=== PATIENT | female | born 1955 | race Caucasian/White ===

== ENCOUNTER → 2017-05-05 | Outpatient (CLI) | payer BC ==
--- NOTE | 2017-05-06 10:00 | WWHP ---
[facility] - HISTORY AND PHYSICAL DATE OF SERVICE: 05/05/2017 CHIEF COMPLAINT: The patient is here for her routine gynecologic exam and mammogram. HPI: This is a 62-year-old G3, P1-0-2-1 with an LMP of 2006. The patient denies any postmenopausal bleeding and is without gynecologic complaints. She does have a history of abnormal Pap smears in recent years. Starting in 2012, she had a low-grade EDMOND Pap smear with positive high-risk HPV testing. She was sent to Dr. Mehta at the [facility]. She has had multiple colposcopies. Colposcopies have been limited because of cervical stenosis and atrophy. Pap smears on 12/19/2014 and 03/25/2016 showed ASCUS with positive high-risk HPV testing. She had talked to Dr. Mehta about possible hysterectomy, but this was not done. She states she has not been sexually active for more than 2 years. PAST MEDICAL HISTORY: Type 2 diabetes, elevated cholesterol, ADHD, and arthritis of the knees. MEDICATIONS: 1. Januvia 100 mg daily. 2. Lipitor 20 mg daily. 3. Vagifem 10 mcg intravaginally twice weekly. 4. Vitamin D3, 1000 units daily. 5. Voltaren gel 1% p.r.n. applied to the knees. 6. Advil 2 b.i.d. p.r.n. 7. Synvisc knee injections every 6 months. ALLERGIES: LEVAQUIN, CONTRAVE, and X-RAY DYE. PAST SURGICAL HISTORY: Past surgical history is unchanged from the 03/25/2016 H&P. 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 She had cryotherapy of the cervix and cold knife conization of the cervix in the for abnormal Pap smears. She has been diagnosed with HPV, but has no other history of STDs in the past. SOCIAL HISTORY: She denies tobacco and drug use and has 0 to 1 alcohol-containing drink per month. She has been since 1997 and has not been sexually active since 2016. 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 FAMILY HISTORY: Grandfather had bowel cancer. Maternal grandfather had lung and brain cancer. Father had coronary artery disease. REVIEW OF SYSTEMS: She has gained about 8 pounds over the last year. She denies respiratory, cardiac or GI problems. PHYSICAL EXAM: Blood pressure 125/60, height 4 feet 11 inches, weight 184 pounds, BMI 37, temperature 97.3, pulse 74. This is a well-developed, well-nourished, white female, who is alert and oriented x3, in no acute distress. HEENT is within normal limits. NECK: Supple without mass or thyromegaly. CHEST AND LUNGS: Clear to auscultation. HEART: Regular rate and rhythm. Breasts are without mass or discharge. Axillary exam is negative for adenopathy. BACK: Negative for CVA tenderness. ABDOMEN: Soft, nontender, without palpable masses. PELVIC EXAM: External genitalia reveals [id number] atrophy without lesions. Cervix and vagina reveals moderate atrophy with stenotic appearing atrophic cervix without lesions. The cervix is nearly flush with the back of the vagina secondary to atrophy. There is no evidence of prolapse. There is no unusual discharge. The uterus is mid position, nongravid size and nontender. There are no palpable adnexal masses or tenderness. Rectovaginal exam is negative for mass or tenderness and is negative for occult blood. EXTREMITIES: Nontender. IMPRESSION: 1. A 62-year-old menopausal female with moderate genital atrophy and resulting cervical stenosis in otherwise unremarkable gynecologic exam. 2. History of ASCUS Pap smears with positive high-risk HPV testing in 2014 and 2016. PLAN: 1. Pap smear was performed. This will be done with high-risk HPV testing today. 2. Self breast examination was discussed. 3. Mammogram will be done today. 4. Continue Vagifem 10 mcg twice weekly at this time. 5. Osteoporosis prevention was discussed. I have recommended bone density screening. An order slip was given to the patient for this. 6. I have recommended screening colonoscopy since it has been more than 10 years since her last one and Dr. Martin's card was given to the patient for this. 7. If Pap smear testing it is negative and HPV testing is negative, we will proceed with conservative management. If HPV testing or Pap smear is positive, consider referral back to Dr. Mehta for recommendations. 8. She will return in one year. MMODL / IJN: [id number] /
--- NOTE | 2017-05-06 10:00 | MM ---
Reason for exam: screening (asymptomatic). Last mammogram was performed 1 year and 1 month ago. History: Patient is postmenopausal. Taking other hormone for 2 years. Physical Findings: A clinical breast exam by your physician is recommended on an annual basis and results should be correlated with mammographic findings. MG Screening Mammo w CAD Bilateral CC and MLO view(s) were taken. Prior study comparison: March 25, 2016, bilateral MG 3d screening mammo w/cad. May 12, 2014, bilateral MG screening mammo w CAD. There are scattered fibroglandular densities. There is no discrete abnormality. No significant changes when compared with prior studies. ASSESSMENT: Negative, BI-RAD 1 RECOMMENDATION: Routine screening mammogram of both breasts in 1 year.
== END | disposition home or self-care (01) ==
LOC: WWCWWP 14:16
PROVIDERS: ATTEND Obstetrics & Gynecology
DX: Z12.31 Encounter for screening mammogram for malignant neoplasm of breast (principal)
CPT/HCPCS: 77067

== ENCOUNTER → 2017-06-01 | Outpatient (CLI) | payer BC ==
--- NOTE | 2017-06-02 07:39 | BD ---
EXAMINATION TYPE: MG DEXA axial skeleton. DATE OF EXAM: 06/01/2017 COMPARISON: NONE CLINICAL HISTORY: PT IS 62 YR OLD FEMALE: ICD-10 CODE: Z78.0 POST MENOPAUSAL STATUS Height: 57.7 Weight: 180 FRAX RISK QUESTIONS: Alcohol (3 or more units per day): NO Family History (Parent hip fracture): NO Glucocorticoids (More than 3mos): NO (Ex: prednisone, prednisolone, methylprednisolone, dexamethasone, and hydrocortisone). History of Fracture in Adulthood: NO Secondary Osteoporosis: NO 1. Type 1 Diabetes: NO 2. Hyperthyroidism: NO 3. Menopause before 45: NO 4. Malnutrition: NO 5. Chronic liver disease: NO Rheumatoid Arthritis: NO Current Tobacco Use: NO RISK FACTORS HISTORY OF: Family History of Osteoporosis: NO Active: SOMEWHAT, KNEES PAINFUL Diet low in dairy products/other sources of calcium: NO Postmenopausal woman: YES AT AGE 51 Take estrogen and/or progesterone medications: VAGIFEM, How lon-4 YRS Lost more than 2 inches in height since high school: YES Hyperparathyroidism: NO Adrenal Insufficiency: NO MEDICATIONS: Additional Medications: TYPE 2 DIABETIC, VICTOZA, JENUVIA, LIPITOR, VIT D3, ALEVE Additional History: DIABETIC, SEVERE OSTEOARTHIS IN BOTH KNEES EXAM MEASUREMENTS: Bone mineral densitometry was performed using the [employer] System. Bone mineral density as measured about the Lumbar spine is: ----- L1-L4(G/cm2): 1.199 T Score Values are as follows: ----- L1: 0.2 ----- L2: -0.3 ----- L3: -0.3 ----- L4: 0.8 ----- L1-L4: 0.2 Bone mineral density FIRST BONE DENSITY TEST..........BASELINE STUDY Bone mineral density about the R hip (g/cm2): 1.107 Bone mineral density about the L hip (g/cm2): 1.067 T Score values are as follows: -----R Neck: -0.6 -----L Neck: -0.4 -----R Total: 0.8 -----L Total: 0.5 Bone mineral density BASELINE STUDY FRAX%S: THERE IS A 6.4% CHANCE OF A MAJOR OSTEOPOROTIC FX AND A 0.3% FOR HIP FX....PROBABILITY OF F X IN 10 YRS TIME IMPRESSION: No evidence for osteoporosis or osteopenia. NOTE: T-SCORE=SD OF THE YOUNG ADULT MEAN.
== END ==
LOC: RADBDWWP 15:03
PROVIDERS: ATTEND Obstetrics & Gynecology
DX: Z78.0 Asymptomatic menopausal state (principal)
CPT/HCPCS: 77080

== ENCOUNTER → 2018-09-07 | Outpatient (CLI) | payer BC ==
[2018-09-07 11:57] VITALS: BP 116/76; PULSE 52; RESP 18; TEMP 97.9; BMI 31.6
--- NOTE | 2018-09-07 12:27 | P.HPOB ---
History of Present Illness H&P Date: 09/07/18 Chief Complaint: The patient is here for her routine gynecologic exam and ma mmogram. This is a 63-year-old with an LMP of 2006. The patient is without gynecologic complaints and denies any postmenopausal bleeding. The patient has a history of several abnormal Pap smear is showing ascus or low-grade changes with positive high risk HPV testing since 2012. Her most recent Pap smear on 05/05/2017 showed ascus with positive high-risk HPV. The patient had a colposc opic examination by Dr. Myers (U or M)09/25/2017 which showed findings consistent with ULISES 1 and cervical stenosis. He planned repeating the Pap smear with high-risk HPV testing in one year. Review of Systems The patient has lost 11 pounds over the last year. She denies respiratory, cardiac, or G.I. problems. Past Medical History Past Medical History: Diabetes Mellitus, Hyperlipidemia, Osteoarthritis (OA) Additional Past Medical History / Comment(s): Type II diabetes, ADHD and arthritis of the knees. 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 History of high risk HPV. No other history of STDs. History of Any Multi-Drug Resistant Organisms: None Reported Past Psychological History: ADD/ADHD Smoking Status: Never smoker Past Alcohol Use History: Rare (0-1 per month) Additional History: The patient is . She has not been sexually active since 2015. 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 Medications and Allergies Home Medications Medication Instructions Recorded Confirmed Type Cholecalciferol (Vitamin D3) 2,000 unit PO DAILY 09/07/18 09/07/18 History [Vitamin D3] Estradiol [Vagifem] 10 mcg VG DIRECTED 09/07/18 09/07/18 History sitaGLIPtin [Januvia] 100 mg PO DAILY 09/07/18 09/07/18 History Allergies Allergy/AdvReac Type Severity Reaction Status Date / Time levofloxacin [From Levaquin] AdvReac Severe HIVES Unverified 09/07/18 11:50 metformin AdvReac Severe HIVES,NAUSE Unverified 09/07/18 11:50 A Exam Vital Signs Temp Pulse Resp BP Pulse Ox 09/07/18 11:53 97.9 F 52 L 18 116/76 100 Intake and Output 0509/07/18 09/07/18 22:59 06:59 14:59 Other: Weight 78.471 kg Height 4'11", weight 173 pounds, BMI 31.6. This is a well-developed well-nourished white female who is alert and oriented times 3 in no acute distress. HEENT: Within normal limits. NECK: Supple without mass or thyromegaly. CHEST AND LUNGS: Clear to auscultation. HEART: Regular rate and rhythm. BREASTS: Are without mass or discharge. AXILLARY EXAM: Negative for adenopathy. BACK: Negative for CVA tenderness. ABDOMEN: Soft, nontender, without palpable masses. PELVIC EXAM: Normal external genitalia with mild atrophy. Cervix and vagina appear normal with mild to moderate atrophy. The cervix is stenotic. There is no unusual discharge. There is no evidence of prolapse. The uterus is midposition, nongravid size and nontender. There are no palpable adnexal masses or tenderness. RECTAL EXAM: rectovaginal exam is negative for mass or tenderness and is negative for occult blood. EXTREMITIES: Nontender. IMPRESSION: 1. 63-year-old menopausal female with cervical stenosis consistent with atrophy and previous organization over cervix. Otherwise unremarkable gynecologic exam. 2. History of multiple low-grade ore ascus Pap smear is with positive high risk HPV testing since 2012. PLAN: 1. Pap smear with high-risk HPV testing (cotest) was performed. 2. Self breast awareness was discussed with the patient. 3. Screening mammogram will be done today. 4. Continue Vagifem 10 g twice weekly intravaginally. The patient requested a paper prescription for this. 5. Osteoporosis prevention was discussed. I have stressed the importance of adequate calcium, vitamin D and regular exercise. Recommended amounts of calcium and vitamin D were also discussed. She had a normal bone density test on 06/01/2017 and this will be repeated around 2024. 6.She was advised to return in one year for her annual well woman exam.
--- NOTE | 2018-09-08 08:53 | MM ---
Reason for exam: screening (asymptomatic). Last mammogram was performed 1 year and 4 months ago. History: Patient is postmenopausal. Taking other hormone for 2 years. Physical Findings: A clinical breast exam by your physician is recommended on an annual basis and results should be correlated with mammographic findings. MG 3D Screening Mammo W/Cad Bilateral CC and MLO view(s) were taken. Prior study comparison: May 05, 2017, bilateral MG screening mammo w CAD. March 25, 2016, bilateral MG 3d screening mammo w/cad. The breast tissue is heterogeneously dense. This may lower the sensitivity of mammography. No suspicious abnormality. No significant changes when compared with prior studies. ASSESSMENT: Negative, BI-RAD 1 RECOMMENDATION: Routine screening mammogram of both breasts in 1 year.
== END ==
LOC: WWCWWP 11:16
PROVIDERS: ATTEND Obstetrics & Gynecology
DX: Z12.31 Encounter for screening mammogram for malignant neoplasm of breast (principal)
CPT/HCPCS: 77063; 77067

== ENCOUNTER → 2019-10-18 | Outpatient (CLI) | payer BC ==
[2019-10-18 15:13] VITALS: BP 102/68; PULSE 87; RESP 20; TEMP 98.2
--- NOTE | 2019-10-18 16:06 | P.HPOB ---
History of Present Illness H&P Date: 10/18/19 Chief Complaint: The patient is here for her routine gynecologic exam and ma mmogram. This is a 64-year-old with an LMP of 2005. The patient is without gynecologic complaints and denies any post menopausal bleeding. Review of Systems The patient has gained 5 pounds over the last year. She denies respiratory, cardiac, or G.I. problems. Past Medical History Past Medical History: Diabetes Mellitus, Hyperlipidemia, Osteoarthritis (OA) Additional Past Medical History / Comment(s): Type II diabetes, ADHD and arthritis of the knees. 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 History of high risk HPV. No other history of STDs. History of Any Multi-Drug Resistant Organisms: None Reported Past Surgical History: Cholecystectomy, Tonsillectomy Additional Past Surgical History / Comment(s): Ovarian cystectomy, bilateral salpingectomy for ectopic , D&C, multiple laparoscopies for infertility, cold knife conization of the cervix and cryotherapy of the cervix in the , Lasix eye surgery. Colonoscopy 2000. Past Psychological History: ADD/ADHD Smoking Status: Never smoker Past Alcohol Use History: Rare (0-1 per month) Past Drug Use History: None Reported Additional History: She is . She has not been sexually active since 2015. 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 - Past Family History Father Family Medical History: Coronary Artery Disease (CAD) Paternal Grandfater Family Medical History: Cancer Additional Family Medical History / Comment(s): Bowel cancer. Maternal grandfather Family Medical History: Cancer Additional Family Medical History / Comment(s): Lung and brain cancer. Maternal Aunt Family Medical History: Cancer Additional Family Medical History / Comment(s): Some type of gynecologic cancer. Medications and Allergies Home Medications Medication Instructions Recorded Confirmed Type Cholecalciferol (Vitamin D3) 2,000 unit PO DAILY 09/07/18 10/18/19 History [Vitamin D3] Estradiol [Vagifem] 10 mcg VG DIRECTED 09/07/18 10/18/19 History sitaGLIPtin [Januvia] 100 mg PO DAILY 09/07/18 10/18/19 History Atorvastatin [Lipitor] 20 mg PO HS 10/18/19 10/18/19 History Diclofenac Sodium [Voltaren] 25 mg PO DAILY PRN 10/18/19 10/18/19 History Ertugliflozin Pidolate [Steglatro] 5 mg PO DAILY 10/18/19 10/18/19 History Naproxen Sodium [Aleve] 220 mg PO DAILY 10/18/19 10/18/19 History Allergies Allergy/AdvReac Type Severity Reaction Status Date / Time levofloxacin [From Levaquin] AdvReac Severe HIVES Unverified 10/18/19 15:04 metformin AdvReac Severe HIVES,NAUSE Unverified 10/18/19 15:04 A CONTRAST DYE AdvReac Rash/Hives Uncoded 10/18/19 15:07 Exam Vital Signs Temp Pulse Resp BP Pulse Ox 10/18/19 15:08 98.2 F 87 20 102/68 94 L Intake and Output 10/18/19 10/18/19 10/18/19 06:59 14:59 22:59 Other: Weight 80.739 kg Height 4 feet 10 inches, weight 178 pounds, BMI 37.2. This is a well-developed well-nourished white female who is alert and oriented times 3 in no acute distress. HEENT: Within normal limits. NECK: Supple without mass or thyromegaly. CHEST AND LUNGS: Clear to auscultation. HEART: Regular rate and rhythm. BREASTS: Are without mass or discharge. AXILLARY EXAM: Negative for adenopathy. BACK: Negative for CVA tenderness. ABDOMEN: Soft, nontender, without palpable masses. PELVIC EXAM: Normal external genitalia with mild to moderate atrophy. Cervix and vagina appear normal with mild to moderate atrophy. The cervix is somewhat flush with the back of the vagina and is atrophic. Cervix appears stenotic cons istent with her previous conization of the cervix. There is no unusual discharge. There is no evidence of prolapse. The uterus is midposition, nongravid size and nontender. There are no palpable adnexal masses or tenderness. RECTAL EXAM: Rectovaginal exam is negative for mass or tenderness and is negative for occult blood. EXTREMITIES: Nontender. IMPRESSION: 1. 64-year-old menopausal female with history of multiple cervical procedures including cold knife conization of the cervix and cryotherapy of the cervix. The cervix is somewhat shortened and stenotic and is otherwise unremarkable. Otherwise unremarkable gynecologic exam. 2. History of multiple low-grade changes of the cervix. Last Pap smear with high-risk HPV testing was negative on 09/07/2018. PLAN: 1. Pap smear was deferred since she had a negative co-test Pap smear on 09/07/2018. We will repeat Pap smear testing in 1-2 years. 2. Self breast awareness was discussed with the patient. 3. Screening mammogram will be done today. 4. Osteoporosis prevention was discussed. I have stressed the importance of adequate calcium, vitamin D and regular exercise. Recommended amounts of calcium and vitamin D were also discussed. She had a normal bone density test on 06/01/2017. We will plan on repeating bone density testing in approximately 6 years. 5. She states she had a cologuard colorectal screening in 2018 and was negative per the patient. She will discuss further colorectal screening with Dr. Todd. 6. She was advised to return in one year for her annual well woman exam.
--- NOTE | 2019-10-20 10:05 | MM ---
Reason for exam: screening (asymptomatic). Last mammogram was performed 1 year and 1 month ago. History: Patient is postmenopausal. Took hormonal contraceptives for 10 years. Taking other hormone for 2 years. Physical Findings: A clinical breast exam by your physician is recommended on an annual basis and results should be correlated with mammographic findings. MG 3D Screening Mammo W/Cad Bilateral CC and MLO view(s) were taken. Prior study comparison: September 07, 2018, bilateral MG 3d screening mammo w/cad. May 05, 2017, bilateral MG screening mammo w CAD. There are scattered fibroglandular densities. Stable faint 12 o'clock posterior calcifications on the right. No significant changes when compared with prior studies. ASSESSMENT: Negative, BI-RAD 1 RECOMMENDATION: Routine screening mammogram of both breasts in 1 year.
== END | disposition home or self-care (01) ==
LOC: WWCWWP 14:58
PROVIDERS: ATTEND Obstetrics & Gynecology
DX: Z12.31 Encounter for screening mammogram for malignant neoplasm of breast (principal)
CPT/HCPCS: 77063; 77067

== ENCOUNTER → 2020-11-06 | Outpatient (CLI) | payer MEDICARE ==
[2020-11-06 12:55] VITALS: BP 107/75; PULSE 83; RESP 18; TEMP 98.6
--- NOTE | 2020-11-06 13:32 | P.HPOB ---
History of Present Illness H&P Date: 11/06/20 Chief Complaint: The patient is here for her routine gynecologic exam and ma mmogram. This is a 65-year-old 0-1 with an LMP of 2006. The patient is without gynecologic complaints and denies any postmenopausal bleeding. The patient has a history of cervical dysplasia and had previous cervical procedures done including cold knife conization and cryotherapy of the cervix in the . She has had relatively frequent abnormal Pap smears with low-grade changes over the past 10 years. Her last Pap smear with high-risk HPV testing were both negative on 09/07/2018. She stopped using Vagifem for vaginal dryness and she has noticed more vaginal dryness and would like to restart it. Review of Systems She has gained about 6 pounds over the past year. She denies respiratory, cardiac and G.I. problems. She denies maltreatment or problems with falling. : she denies any significant problems with urinary leakage. Past Medical History Past Medical History: Diabetes Mellitus, Hyperlipidemia, Osteoarthritis (OA) Additional Past Medical History / Comment(s): Type II diabetes, ADHD and arthritis of the knees. 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 History of high risk HPV. No other history of STDs. History of Any Multi-Drug Resistant Organisms: None Reported Past Surgical History: Cholecystectomy, Tonsillectomy Additional Past Surgical History / Comment(s): Ovarian cystectomy, bilateral salpingectomy for ectopic , D&C, multiple laparoscopies for infertility, cold knife conization of the cervix and cryotherapy of the cervix in the , Lasix eye surgery. Colonoscopy 2000. Past Psychological History: ADD/ADHD Smoking Status: Never smoker Past Alcohol Use History: Rare (One per month) Past Drug Use History: None Reported Additional History: She is and has not been sexually active since 2016. 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 - Past Family History Father Family Medical History: Coronary Artery Disease (CAD) Paternal Grandfater Family Medical History: Cancer Additional Family Medical History / Comment(s): Bowel cancer. Maternal grandfather Family Medical History: Cancer Additional Family Medical History / Comment(s): Lung and brain cancer. Maternal Aunt Family Medical History: Cancer Additional Family Medical History / Comment(s): Some type of gynecologic cancer. Medications and Allergies Home Medications Medication Instructions Recorded Confirmed Type Cholecalciferol (Vitamin D3) 2,000 unit PO DAILY 09/07/18 11/06/20 History [Vitamin D3] sitaGLIPtin [Januvia] 100 mg PO DAILY 09/07/18 11/06/20 History Atorvastatin [Lipitor] 20 mg PO HS 10/18/19 11/06/20 History Diclofenac Sodium [Voltaren] 25 mg PO DAILY PRN 10/18/19 11/06/20 History Naproxen Sodium [Aleve] 220 mg PO DAILY 10/18/19 11/06/20 History Celecoxib [CeleBREX] 100 mg PO BID 11/06/20 11/06/20 History Allergies Allergy/AdvReac Type Severity Reaction Status Date / Time levofloxacin [From Levaquin] AdvReac Severe HIVES Unverified 11/06/20 12:44 metformin AdvReac Severe HIVES,NAUSE Unverified 11/06/20 12:44 A CONTRAST DYE AdvReac Rash/Hives Uncoded 11/06/20 12:44 Exam Vital Signs Temp Pulse Resp BP Pulse Ox 11/06/20 12:47 98.6 F 83 18 107/75 96 Intake and Output 11/05/20 11/06/20 11/06/20 22:59 06:59 14:59 Other: Weight 83.461 kg Height 4 feet 10 inches, weight 184 pounds, BMI 38.5. This is a well-developed well-nourished white female who is alert and oriented times 3 in no acute distress. HEENT: Within normal limits. NECK: Supple without mass or thyromegaly. CHEST AND LUNGS: Clear to auscultation. HEART: Regular rate and rhythm. BREASTS: Are without mass or discharge. AXILLARY EXAM: Negative for adenopathy. BACK: Negative for CVA tenderness. ABDOMEN: Soft, nontender, without palpable masses. PELVIC EXAM: Normal external genitalia with mild to moderate atrophy. Cervix and vagina appear normal with moderate atrophy. The cervix appears stenotic and very atrophic and is nearly flush with the back of the vagina consistent with her previous conization. There are no cervical lesions noted. There is no unusual discharge. There is no evidence of prolapse. The uterus is midposition, nongravid size and nontender. There are no palpable adnexal masses or tenderness. RECTAL EXAM: Rectovaginal exam is negative for mass or tenderness and is negative for occult blood. EXTREMITIES: Nontender. IMPRESSION: 1. 65-year-old menopausal female with normal gynecologic exam. 2. History of multiple cervical procedures including cold knife conization and cryotherapy of the cervix. PLAN: 1. Pap smear test was performed. This was done earlier than usual following a negative Pap smear cotest due to her history. We will continue cervical sc reening until we have had 3 negative ones in a row. 2. Self breast awareness was discussed with the patient. 3. Screening mammogram will be done today. 4. Osteoporosis prevention was discussed. I have stressed the importance of adequate calcium, vitamin D and regular exercise. Recommended amounts of calcium and vitamin D were also discussed. Next bone density test will be done in approximately 3-4 years. 5. She would like to resume using Vagifem for vaginal dryness. Vagifem 10 g into the vagina twice weekly. The prescription will be sent electronically to [facility] on [facility]. 6. She has completed her Covid vaccination series and did receive her flu shot last fall. 7. She was advised to return in one year for her annual well woman exam.
== END ==
LOC: WWCWWP 12:28
PROVIDERS: ATTEND Obstetrics & Gynecology
DX: Z12.31 Encounter for screening mammogram for malignant neoplasm of breast (principal); Z01.419 Encounter for gynecological examination (general) (routine) without abnormal findings; E11.9 Type 2 diabetes mellitus without complications; E78.5 Hyperlipidemia, unspecified; M17.0 Bilateral primary osteoarthritis of knee; F90.9 Attention-deficit hyperactivity disorder, unspecified type; Z98.890 Other specified postprocedural states; Z79.84 Long term (current) use of oral hypoglycemic drugs; Z88.8 Allergy status to other drugs, medicaments and biological substances; Z88.1 Allergy status to other antibiotic agents; Z91.041 Radiographic dye allergy status
CPT/HCPCS: 77063; 77067

== ENCOUNTER → 2020-11-21 | Outpatient (CLI) | payer MEDICARE ==
--- NOTE | 2020-11-22 11:36 | MM ---
Reason for exam: screening (asymptomatic). Last mammogram was performed less than 1 month ago. History: Patient is postmenopausal. Took hormonal contraceptives for 10 years. Taking other hormone for 2 years. Physical Findings: A clinical breast exam by your physician is recommended on an annual basis and results should be correlated with mammographic findings. MG Follow Up LT No Charge CC and MLO view(s) were taken of the left breast. Prior study comparison: October 18, 2019, bilateral MG 3d screening mammo w/cad. September 07, 2018, bilateral MG 3d screening mammo w/cad. There are scattered fibroglandular densities. There are stable grouped/clustered fine calcifications in the posterior position of the right breast. No significant changes in finding since October 18, 2019 and September 07, 2018. ASSESSMENT: Benign, BI-RAD 2 RECOMMENDATION: Routine screening mammogram of both breasts in 1 year.
== END | disposition home or self-care (01) ==
LOC: RADMAMWWP 13:44
PROVIDERS: ATTEND Obstetrics & Gynecology
DX: Z12.31 Encounter for screening mammogram for malignant neoplasm of breast (principal); Z78.0 Asymptomatic menopausal state; Z79.3 Long term (current) use of hormonal contraceptives

== ENCOUNTER → 2022-03-18 | Outpatient (CLI) | payer MEDICARE ==
[2022-03-18 14:35] VITALS: BP 116/65; PULSE 86; RESP 18; TEMP 98.3
--- NOTE | 2022-03-18 15:20 | P.HPOB ---
History of Present Illness H&P Date: 03/18/22 Chief Complaint: The patient is here for her routine gynecologic exam and ma mmogram. This is a 66-year-old with an LMP of 2005. The patient is without gynecologic complaints and denies any postmenopausal bleeding. She has not been using the Vagifem tablets since she did not feel there was enough benefit with taking it. She is not sexually active and has not been sexually active for a number of years. Review of Systems The patient's weight has been stable over the last year. She denies respiratory, cardiac, or G.I. problems. Past Medical History Past Medical History: Diabetes Mellitus, Hyperlipidemia, Osteoarthritis (OA) Additional Past Medical History / Comment(s): Type II diabetes, ADHD and arthritis of the knees. 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 History of high risk HPV. No other history of STDs. History of Any Multi-Drug Resistant Organisms: None Reported Past Surgical History: Cholecystectomy, Tonsillectomy Additional Past Surgical History / Comment(s): Ovarian cystectomy, bilateral salpingectomy for ectopic , D&C, multiple laparoscopies for infertility, cold knife conization of the cervix and cryotherapy of the cervix in the , Lasix eye surgery. Colonoscopy 2000. Past Psychological History: ADD/ADHD Smoking Status: Never smoker Past Alcohol Use History: Rare (1 per month) Past Drug Use History: None Reported Additional History: She is and is not seeing anybody and has not been sexually active since 2015. 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 - Past Family History Father Family Medical History: Coronary Artery Disease (CAD) Paternal Grandfater Family Medical History: Cancer Additional Family Medical History / Comment(s): Bowel cancer. Maternal grandfather Family Medical History: Cancer Additional Family Medical History / Comment(s): Lung and brain cancer. Maternal Aunt Family Medical History: Cancer Additional Family Medical History / Comment(s): Some type of gynecologic cancer. Medications and Allergies Home Medications Medication Instructions Recorded Confirmed Type Cholecalciferol (Vitamin D3) 2,000 unit PO DAILY 09/07/18 03/18/22 History [Vitamin D3] sitaGLIPtin [Januvia] 100 mg PO DAILY 09/07/18 03/18/22 History Atorvastatin [Lipitor] 20 mg PO HS 10/18/19 03/18/22 History Diclofenac Sodium [Voltaren] 25 mg PO DAILY PRN 10/18/19 03/18/22 History Celecoxib [CeleBREX] 100 mg PO BID 11/06/20 03/18/22 History Allergies Allergy/AdvReac Type Severity Reaction Status Date / Time levofloxacin [From Levaquin] AdvReac Severe HIVES Unverified 03/18/22 14:26 metformin AdvReac Severe HIVES,NAUSE Unverified 03/18/22 14:26 A CONTRAST DYE AdvReac Rash/Hives Uncoded 03/18/22 14:26 Exam Vital Signs Temp Pulse Resp BP Pulse Ox 03/18/22 14:27 98.3 F 86 18 116/65 95 Intake and Output 03/18/22 03/18/22 03/18/22 06:59 14:59 22:59 Other: Weight 83.461 kg Height 4 feet 10 inches, weight 184 pounds, BMI 38.5. This is a well-developed well-nourished white female who is alert and oriented times 3 in no acute distress. HEENT: Within normal limits. NECK: Supple without mass or thyromegaly. CHEST AND LUNGS: Clear to auscultation. HEART: Regular rate and rhythm. BREASTS: Are without mass or discharge. AXILLARY EXAM: Negative for adenopathy. BACK: Negative for CVA tenderness. ABDOMEN: Soft, nontender, without palpable masses. PELVIC EXAM: Normal external genitalia with mild atrophy. Cervix and vagina appear normal with mild atrophy. The cervix is somewhat short and stenotic consistent with her previous conization and atrophy. There is no unusual discharge. There is no evidence of prolapse. The uterus is midposition, nongravid size and nontender. There are no palpable adnexal masses or tenderness. RECTAL EXAM: Rectovaginal exam is negative for mass or tenderness and is negative for occult blood. EXTREMITIES: Nontender. IMPRESSION: 1. 66-year-old menopausal female with normal gynecologic exam. 2. History of multiple cervical procedures in the past including cold knife conization and cryotherapy of the cervix. PLAN: 1. Pap smear was deferred. Her last 2 Pap smear cotest on 11/06/2020 and 09/07/2018 were both negative. We will plan on repeating a Pap smear cotest next year and if this is negative we will consider discontinuing Pap smears. 2. Self breast awareness was discussed with the patient. We have also discussed symptoms associated with inflammatory breast cancer. 3. Screening mammogram will be done today. 4. Osteoporosis prevention was discussed. I have stressed the importance of adequate calcium, vitamin D and regular exercise. Recommended amounts of calcium and vitamin D were also discussed. She had a normal bone density test done on 06/01/2017. We will plan on repeating this after 7 years. 5. Colorectal cancer screening was discussed. She states she has been doing Cologuard testing through her PCP. 6. She was advised to return in one year for her annual well woman exam.
--- NOTE | 2022-03-19 09:22 | MM ---
Reason for Exam: Screening (asymptomatic). Last mammogram was performed 1 year(s) and 4 month(s) ago. Patient History: Menarche at age 11. First Full-Term at age 25. Postmenopausal. Patient has history of breast feeding. Patient used Hormonal Contraceptives for 10 years. Risk Values: Inna 5 year model risk: 2.0%. NCI Lifetime model risk: 7.3%. Prior Study Comparison: 04/28/1995 Screening Mammogram, Unknown. 12/03/2012 Bilateral Screening Mammogram, [facility]. 05/12/2014 Bilateral Screening Mammogram, [facility]. 03/25/2016 Bilateral Screening Mammogram, [facility]. 05/05/2017 Bilateral Screening Mammogram, [facility]. 09/07/2018 Bilateral Screening Mammogram, [facility]. 10/18/2019 Bilateral Screening Mammogram, [facility]. 11/06/2020 Bilateral Screening Mammogram, [facility]. 11/21/2020 Left Diagnostic Mammogram, [facility]. Tissue Density: The breast tissue is almost entirely fat. Findings: Analyzed By CAD. There is no suspicious group of microcalcifications or new suspicious mass in either breast. Overall Assessment: Negative, BI-RAD 1 Management: Screening Mammogram of both breasts in 1 year. A clinical breast exam by your physician is recommended on an annual basis and results should be correlated with mammographic findings. [facility] will attempt to contact patient to return for supplemental views and ultrasound if indicated. Electronically signed and approved by: Guerrero Fermin DO
== END ==
LOC: WWCWWP 14:18
PROVIDERS: ATTEND Obstetrics & Gynecology
DX: Z01.419 Encounter for gynecological examination (general) (routine) without abnormal findings (principal); Z12.31 Encounter for screening mammogram for malignant neoplasm of breast; Z78.0 Asymptomatic menopausal state; Z88.1 Allergy status to other antibiotic agents; Z88.8 Allergy status to other drugs, medicaments and biological substances; Z91.041 Radiographic dye allergy status; Z98.890 Other specified postprocedural states
CPT/HCPCS: 77063; 77067

== ENCOUNTER → 2023-03-24 | Outpatient (CLI) | payer MEDICARE ==
[2023-03-24 12:04] VITALS: BP 116/75; PULSE 89; RESP 16; TEMP 97.9
--- NOTE | 2023-03-24 12:21 | P.HPOB ---
History of Present Illness H&P Date: 03/24/23 Chief Complaint: The patient is here for her routine gynecologic exam and ma mmogram. This is a 67-year-old 011 with an LMP of 2005. The patient is without gynecologic complaints and denies any postmenopausal bleeding. She has not been sexually active for a number of years. Review of Systems The patient has lost 17 pounds over the last year. She attributes the weight loss to her new diabetes medication with healthy eating. She denies respiratory, cardiac, or G.I. problems. Past Medical History Past Medical History: Cancer, Diabetes Mellitus, Hyperlipidemia, Osteoarthritis (OA) Additional Past Medical History / Comment(s): Type II diabetes, ADHD and arthritis of the knees. Skin cancer on the ear. 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 History of high risk HPV. No other history of STDs. History of Any Multi-Drug Resistant Organisms: None Reported Past Surgical History: Cholecystectomy, Tonsillectomy Additional Past Surgical History / Comment(s): Ovarian cystectomy, bilateral salpingectomy for ectopic , D&C, multiple laparoscopies for infertility, cold knife conization of the cervix and cryotherapy of the cervix in the , Lasix eye surgery. Colonoscopy 2000. Past Psychological History: ADD/ADHD Smoking Status: Never smoker Past Alcohol Use History: Rare (6 per year) Past Drug Use History: None Reported Additional History: She is and has not been sexually active since 2015. 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 - Past Family History Father Family Medical History: Coronary Artery Disease (CAD) Paternal Grandfater Family Medical History: Cancer Additional Family Medical History / Comment(s): Bowel cancer. Maternal grandfather Family Medical History: Cancer Additional Family Medical History / Comment(s): Lung and brain cancer. Maternal Aunt Family Medical History: Cancer Additional Family Medical History / Comment(s): Some type of gynecologic cancer. Medications and Allergies Home Medications Medication Instructions Recorded Confirmed Type Cholecalciferol (Vitamin D3) 2,000 unit PO DAILY 09/07/18 03/24/23 History [Vitamin D3] Atorvastatin [Lipitor] 20 mg PO HS 10/18/19 03/24/23 History Diclofenac Sodium [Voltaren] 25 mg PO DAILY PRN 10/18/19 03/24/23 History Celecoxib [CeleBREX] 100 mg PO BID 11/06/20 03/24/23 History Semaglutide [Ozempic] 1 mg INJ WEEKLY 03/24/23 03/24/23 History Allergies Allergy/AdvReac Type Severity Reaction Status Date / Time levofloxacin [From Levaquin] AdvReac Severe HIVES Unverified 03/24/23 11:34 metformin AdvReac Severe HIVES,NAUSE Unverified 03/24/23 11:34 A CONTRAST DYE AdvReac Rash/Hives Uncoded 03/24/23 11:34 Exam Vital Signs Temp Pulse Resp BP Pulse Ox 03/24/23 11:34 97.9 F 89 16 116/75 96 Intake and Output 03/23/23 03/24/23 03/24/23 22:59 06:59 14:59 Other: Weight 75.75 kg Height 4 feet 11 inches, weight 167 pounds, BMI 33.7. This is a well-developed well-nourished white female who is alert and oriented times 3 in no acute distress. HEENT: Within normal limits. NECK: Supple without mass or thyromegaly. CHEST AND LUNGS: Clear to auscultation. HEART: Regular rate and rhythm. BREASTS: Are without mass or discharge. AXILLARY EXAM: Negative for adenopathy. BACK: Negative for CVA tenderness. ABDOMEN: Soft, nontender, without palpable masses. PELVIC EXAM: Normal external genitalia with mild atrophy. Cervix and vagina appear normal with mild to moderate atrophy. The cervix is fairly flush with the back of the vagina consistent with her previous cervical procedures. The surfaces somewhat stenotic secondary to atrophy and her previous procedures. There is no unusual discharge. There is no evidence of prolapse. The uterus is midposition, nongravid size and nontender. There are no palpable adnexal masses or tenderness. RECTAL EXAM: Rectovaginal exam is negative for mass or tenderness and is negative for occult blood. EXTREMITIES: Nontender. IMPRESSION: 1. 67-year-old menopausal female with normal gynecologic exam. 2. History of multiple cervical procedures in the past including cold knife conization and cryotherapy of the cervix in the . PLAN: 1. Pap smear cotest was performed. If this is negative we will plan on repeating it in approximately 5 years. At that time we will consider discontinuing Pap smears if they are all negative. 2. Self breast awareness was discussed with the patient. We have also discussed symptoms associated with inflammatory breast cancer. 3. Screening mammogram will be done today. 4. Osteoporosis prevention was discussed. I have stressed the importance of adequate calcium, vitamin D and regular exercise. Recommended amounts of calcium and vitamin D were also discussed. She had a normal bone density test done in 2018. We will plan on repeating the bone density test in 1 year. 5. PHQ-2 questionaire was given and she scores 0. This is a negative screen for depression. 6. She was advised to return in one year for her annual well woman exam.
--- NOTE | 2023-03-25 08:50 | MM ---
Reason for Exam: Screening (asymptomatic). Last screening mammogram was performed 12 month(s) ago. Patient History: Menarche at age 11. First Full-Term at age 25. Postmenopausal. Patient has history of breast feeding. Patient used Hormonal Contraceptives for 10 years. Risk Values: Inna 5 year model risk: 2.1%. NCI Lifetime model risk: 7.0%. Prior Study Comparison: 11/06/2020 Bilateral Screening Mammogram, [facility]. 11/21/2020 Left Diagnostic Mammogram, [facility]. 03/18/2022 Bilateral MG 3D screening mammo w/cad, [facility]. Tissue Density: The breast tissue is almost entirely fat. Findings: Analyzed By CAD. There is no suspicious group of microcalcifications or new suspicious mass. Overall Assessment: Negative, BI-RAD 1 Management: Screening Mammogram of both breasts in [address] [facility] will attempt to contact patient to return for supplemental views and ultrasound if indicated. Patient should continue monthly self-breast exams. A clinical breast exam by your physician is recommended on an annual basis. This exam should not preclude additional follow-up of suspicious palpable abnormalities. Note on Inna scores and lifetime risk: 1. A Inna score greater than 3% is considered moderate risk. If this is the case, consider specialist referral to assess eligibility for a risk reducing agent. 2. If overall lifetime risk for the development of breast cancer is 20% or higher, the patient may qualify for future screening with alternating mammogram and breast MRI. Electronically signed and approved by: Guerrero Fermin DO
== END ==
LOC: WWCWWP 11:23
PROVIDERS: ATTEND Obstetrics & Gynecology
DX: Z12.31 Encounter for screening mammogram for malignant neoplasm of breast (principal); E11.9 Type 2 diabetes mellitus without complications; E78.5 Hyperlipidemia, unspecified; M19.90 Unspecified osteoarthritis, unspecified site; Z85.828 Personal history of other malignant neoplasm of skin; Z87.59 Personal history of other complications of pregnancy, childbirth and the puerperium; Z88.1 Allergy status to other antibiotic agents; Z90.49 Acquired absence of other specified parts of digestive tract; Z90.79 Acquired absence of other genital organ(s); Z88.2 Allergy status to sulfonamides; Z91.041 Radiographic dye allergy status
CPT/HCPCS: 77063; 77067

== ENCOUNTER → 2024-03-29 | Outpatient (CLI) | payer MEDICARE ==
[2024-03-29 12:53] VITALS: BP 110/73; PULSE 91; RESP 16; TEMP 98.3
--- NOTE | 2024-03-29 13:20 | P.HPOB ---
History of Present Illness H&P Date: 03/29/24 Chief Complaint: The patient is here for her routine gynecologic exam and ma mmogram. This is a 68-year-old -0-1-1 with an LMP of 2005. The patient states she would like to restart Vagifem for vaginal dryness. She previously used this and thinks she did better when she was using it. She has not been sexually active for several years. She is otherwise without complaints and denies any postmenopausal bleeding. Review of Systems The patient has lost 7 pounds over the last year. She denies respiratory, cardiac, or G.I. problems. She has been trying to lose weight and she thinks Ozempic is helping. Past Medical History Past Medical History: Cancer, Diabetes Mellitus, Hyperlipidemia, Osteoarthritis (OA) Additional Past Medical History / Comment(s): Type II diabetes, ADHD and arthritis of the knees. Skin cancer on the ear. 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 History of high risk HPV. No other history of STDs. History of Any Multi-Drug Resistant Organisms: None Reported Past Surgical History: Cholecystectomy, Tonsillectomy Additional Past Surgical History / Comment(s): Ovarian cystectomy, bilateral salpingectomy for ectopic , D&C, multiple laparoscopies for infertility, cold knife conization of the cervix and cryotherapy of the cervix in the , Lasix eye surgery. Colonoscopy 2000. Past Psychological History: ADD/ADHD Smoking Status: Never smoker Past Alcohol Use History: Rare (1 drink per month.) Past Drug Use History: None Reported Additional History: She is and has not been sexually active since 2015. 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 - Past Family History Father Family Medical History: Coronary Artery Disease (CAD) Paternal Grandfater Family Medical History: Cancer Additional Family Medical History / Comment(s): Bowel cancer. Maternal grandfather Family Medical History: Cancer Additional Family Medical History / Comment(s): Lung and brain cancer. Maternal Aunt Family Medical History: Cancer Additional Family Medical History / Comment(s): Some type of gynecologic cancer. Medications and Allergies Home Medications Medication Instructions Recorded Confirmed Type Cholecalciferol (Vitamin D3) 2,000 unit PO DAILY 09/07/18 03/29/24 History [Vitamin D3] Atorvastatin [Lipitor] 20 mg PO HS 10/18/19 03/29/24 History Diclofenac Sodium [Voltaren] 25 mg PO DAILY PRN 10/18/19 03/29/24 History Celecoxib [CeleBREX] 100 mg PO BID 11/06/20 03/29/24 History Semaglutide [Ozempic] 1 mg INJ WEEKLY 03/24/23 03/29/24 History Allergies Allergy/AdvReac Type Severity Reaction Status Date / Time levofloxacin [From Levaquin] AdvReac Severe HIVES Unverified 03/29/24 12:48 metformin AdvReac Severe HIVES,NAUSE Unverified 03/29/24 12:48 A CONTRAST DYE AdvReac Rash/Hives Uncoded 03/29/24 12:48 Exam Vital Signs Temp Pulse Resp BP Pulse Ox 03/29/24 12:49 98.3 F 91 16 110/73 96 Intake and Output 03/28/24 03/29/24 03/29/24 22:59 06:59 14:59 Other: Weight 72.575 kg Height 4 feet 11 inches, weight 160 pounds, BMI 32.3. This is a well-developed well-nourished white female who is alert and oriented times 3 in no acute distress. HEENT: Within normal limits. NECK: Supple without mass or thyromegaly. CHEST AND LUNGS: Clear to auscultation. HEART: Regular rate and rhythm. BREASTS: Are without mass or discharge. AXILLARY EXAM: Negative for adenopathy. BACK: Negative for CVA tenderness. ABDOMEN: Soft, nontender, without palpable masses. PELVIC EXAM: Normal external genitalia with mild atrophy. Cervix and vagina appear normal with mild atrophy. There is no unusual discharge. There is no evidence of prolapse. The uterus is midposition, nongravid size and nontender. There are no palpable adnexal masses or tenderness. RECTAL EXAM: Rectovaginal exam is negative for mass or tenderness and is negative for occult blood. EXTREMITIES: Nontender. IMPRESSION: 1. 68-year-old menopausal female with normal gynecologic exam. 2. History of cold knife conization of the cervix in the . PLAN: 1. Pap smear was deferred. She had a negative Pap smear cotest on 03/24/2023. We will plan on repeating this in approximately 2027. If that 1 is negative, we will consider discontinuing Pap smears. 2. Self breast awareness was discussed with the patient. We have also discussed symptoms associated with inflammatory breast cancer. 3. Screening mammogram will be done today. 4. Osteoporosis prevention was discussed. I have stressed the importance of adequate calcium, vitamin D and regular exercise. Recommended amounts of calcium and vitamin D were also discussed. She had a normal bone density test in 2018 and we will plan on repeating this next year. 5. She was advised to return in one year for her annual well woman exam.
--- NOTE | 2024-03-30 09:23 | MM ---
Reason for Exam: Screening (asymptomatic). Last mammogram was performed 1 year(s) and 1 month(s) ago. Patient History: Menarche at age 11. First Full-Term at age 25. Postmenopausal. Patient has history of breast feeding. Patient used Hormonal Contraceptives for 10 years. Risk Values: Inna 5 year model risk: 2.1%. NCI Lifetime model risk: 6.7%. Prior Study Comparison: 11/21/2020 Left Diagnostic Mammogram, [facility]. 03/18/2022 Bilateral MG 3D screening mammo w/cad, [facility]. 03/24/2023 Bilateral MG 3D screening mammo w/cad, [facility]. Tissue Density: There are scattered areas of fibroglandular density. Findings: Analyzed By CAD. Right breast: There is no suspicious group of microcalcifications or new suspicious mass. Left breast: There is no suspicious group of microcalcifications or new suspicious mass. Overall Assessment: Negative, BI-RAD 1 Management: Screening Mammogram of both breasts in [address] [facility] will attempt to contact patient to return for supplemental views and ultrasound if indicated. Patient should continue monthly self-breast exams. A clinical breast exam by your physician is recommended on an annual basis. This exam should not preclude additional follow-up of suspicious palpable abnormalities. Note on Inna scores and lifetime risk: 1. A Inna score greater than 3% is considered moderate risk. If this is the case, consider specialist referral to assess eligibility for a risk reducing agent. 2. If overall lifetime risk for the development of breast cancer is 20% or higher, the patient may qualify for future screening with alternating mammogram and breast MRI. [facility], , 03/30/2024 9:20 AM. Electronically signed and approved by: Guerrero Fermin DO
== END ==
LOC: WWCWWP 12:15
PROVIDERS: ATTEND Obstetrics & Gynecology
DX: Z12.31 Encounter for screening mammogram for malignant neoplasm of breast (principal); Z87.410 Personal history of cervical dysplasia; Z88.1 Allergy status to other antibiotic agents; Z88.8 Allergy status to other drugs, medicaments and biological substances; Z91.041 Radiographic dye allergy status
CPT/HCPCS: 77063; 77067